=== PATIENT | female | born 1965 | race Caucasian/White ===

== ENCOUNTER → 2021-09-20 | Day surgery (SDC) | payer MEDICAID ==
[~2021-09-20] MED LIST: Ketamine 200 MG/20 ML MDV ONE; Lactated Ringers 1,000 ML IV SCH; Midazolam 1 MG/ML 2 ML SDV ONE; Propofol 200 MG/20 ML SDV ONE; fentaNYL 50 MCG/ML SDV ONE
[2021-09-20 12:36] VITALS: BP 117/69; PULSE 72
== END ==
LOC: CC.SDS 10:20
PROVIDERS: ATTEND Family Medicine
DX: K29.50 Unspecified chronic gastritis without bleeding (principal); E53.8 Deficiency of other specified B group vitamins; F41.8 Other specified anxiety disorders; K21.9 Gastro-esophageal reflux disease without esophagitis; E55.9 Vitamin D deficiency, unspecified; F17.210 Nicotine dependence, cigarettes, uncomplicated; E66.9 Obesity, unspecified; Z88.0 Allergy status to penicillin; Z79.899 Other long term (current) drug therapy; Z68.26 Body mass index [BMI] 26.0-26.9, adult
CPT/HCPCS: 87081; J2250; J2704; J3010; J7120

== ENCOUNTER 2022-01-15 21:51 | Emergency (ER) | payer MEDICAID ==
[2022-01-15] MEDS ORDERED: Diphtheria,Pertussis(Acell),Tetanus Vaccine 0.5 ML Syringe IM ONE (21:56)
[2022-01-15 21:57] VITALS: BP 141/89; PULSE 88
== END 2022-01-15 23:20 | disposition home or self-care (01) ==
LOC: CC.ED 21:51
DX: S01.01XA Laceration without foreign body of scalp, initial encounter (principal); F10.929 Alcohol use, unspecified with intoxication, unspecified; Z23 Encounter for immunization; Z88.0 Allergy status to penicillin; W06.XXXA Fall from bed, initial encounter
CPT/HCPCS: 12001; 70450; 72125; 90471; 99283; 99284-25